=== PATIENT | female | born 1995 | race Two or more races ===

== ENCOUNTER 2024-09-23 09:08 | Emergency (ER) | payer MEDICAID, SELFPAY ==
[2024-09-23 09:18] VITALS: BP 123/85; PULSE 86; RESP 16; TEMP 36.6; O2SAT 98; BMI 30.9
[2024-09-23 10:05] LABS: Collection Type, Urine Voided
--- NOTE | 2024-09-23 10:07 | PD.EDNECK ---
ED Neck Injury Pain RME/HPI General Chief Complaint: Neck Pain/Injury Stated Complaint: RIGHT SIDE NECK PAIN RATIATING TO HEAD X 1 WEEK Time Seen by Provider: 09/23/24 09:21 Arrival date/time: 09/23/24 09:08 This is a 28-year-old female that comes in with complaints of occipital head pain and neck pain. Patient states that she recently had a URI and the symptoms are actually better but she still has a headache. Patient was seen by her primary provider and was given a steroid shot and was also given a steroid pack which she finished. Patient states that her pain did get better but she still has the pain. Patient states that headaches been going on for the past week. Patient denies any visual symptoms, dizziness nausea, vomiting. Related Data Home Medications ?Medication ?Instructions ?Recorded ?Confirmed Vitamin * 1 tab PO QDAY SUPPLEMENT 04/02/14 01/25/18 #0 tabs Previous Rx's ?Medication ?Instructions ?Recorded sulfamethoxazole 800 1 tab PO BID #14 tabs 11/21/22 mg-trimethoprim 160 mg tablet (Bactrim DS) Allergies Allergy/AdvReac Type Severity Reaction Status Date / Time No Known Drug Allergies Allergy Unknown Verified 09/23/24 09:11 Course Orders Category Date Time Status HCG Qualitative,Urine Stat Lab 09/23/24 10:00 Received Urinalysis, C/S if Indicated Stat Lab 09/23/24 10:00 Received Vital Signs Vital signs: Vital Signs Temperature 97.8 F 09/23/24 09:18 Pulse Rate 86 09/23/24 09:18 Respiratory Rate 16 09/23/24 09:18 Blood Pressure 123/85 H 09/23/24 09:18 Pulse Oximetry (%) 98 09/23/24 09:18 Oxygen Delivery Method Room Air 09/23/24 09:18 Discharge Plan Prescriptions/Referrals Prescriptions/Med Rec: No Action Vitamin * 1 EACH tablet 1 tab PO QDAY Qty: 0 sulfamethoxazole-trimethoprim [Bactrim DS] 800-160 mg tablet 1 tab PO BID Qty: 14 0RF Referrals: Nirmal Beverly FNP [Primary Care Provider] - In 1 week Patient/Caregiver Discharge Instructions Print Language: Taiwanese
[2024-09-23 10:48] LABS: Bilirubin,Urine Negative (Negative); Blood,Urine Negative (Negative); Clarity,Urine Clear (Clear/Hazy); Color,Urine Yellow (Lt Yel-Yel); Culture Indicated,Urine Not Indicated; Glucose, Urine Negative (Negative); Ketones,Urine Negative (Negative); Leukocyte Esterase,Urine Negative (Negative); Nitrite,Urine Negative (Negative); Protein,Urine Negative (Neg - Trace); RBC,Urine 2 /hpf (0-3); Specific Gravity,Urine 1.028 (1.001-1.035); Squamous Epithelial Cell,Urine 12 /hpf (0-5); Urobilinogen,Urine Negative mg/dL (0.0-1.0); WBC,Urine 3 /hpf (0-5)
[2024-09-23 11:02] LABS: HCG Qualitative,Urine Negative
--- NOTE | 2024-09-23 11:56 | PD.EDRME ---
Rapid Medical Screening Exam RME Arrival date/time: 09/23/24 09:08 Chief Complaint: Neck Pain/Injury Time Seen by Provider: 09/23/24 09:21 Vital signs: Vital Signs Temperature 97.8 F 09/23/24 09:18 Pulse Rate 86 09/23/24 09:18 Respiratory Rate 16 09/23/24 09:18 Blood Pressure 123/85 H 09/23/24 09:18 Pulse Oximetry (%) 98 09/23/24 09:18 Oxygen Delivery Method Room Air 09/23/24 09:18
== END 2024-09-23 12:36 | disposition left against medical advice (07) ==
LOC: SERX 09:47
PROVIDERS: Nurse Practitioner Family; Emergency Provider Emergency Medicine; PCP Nurse Practitioner Family
DX: M54.2 Cervicalgia (principal); R51.9 Headache, unspecified; Z53.29 Procedure and treatment not carried out because of patient's decision for other reasons
CPT/HCPCS: 81001; 81025; 99281

== ENCOUNTER 2024-10-01 05:40 | Emergency (ER) | payer MEDICAID, SELFPAY ==
[2024-10-01 05:48] VITALS: BMI 27.4
[2024-10-01 05:59] VITALS: BP 117/76; PULSE 86; RESP 19; TEMP 36.6; O2SAT 97
--- NOTE | 2024-10-01 06:14 | XR_ITS ---
Examination: PA lateral chest 2 views TECHNIQUE: Upright PA and lateral chest 2 views Exam date and time: October 01, 2024 0630 hours INDICATIONS: Chest pain today. FINDINGS: Normal heart size Lungs are clear. Osseous structures are intact. IMPRESSION: No active disease
--- NOTE | 2024-10-01 06:14 | EKG_ITS ---
[facility] Test Date: 2024-10-01 Pat Name: KERA MERAZ Department: Room: - Gender: Female [employer] Equipment [employer]: : 1995 Requested By: Joce Ballard Order Number: [id number] Reading MD: Joce Ballard Measurements Intervals [place] Rate: 97 P: 55 KS: 167 QRS: 51 QRSD: 84 T: -1 QT: 334 QTc: 425 Interpretive Statements SINUS RHYTHM NONSPECIFIC T-WAVE ABNORMALITY No previous ECG available for comparison /store/[email or web address]/[id number]
--- NOTE | 2024-10-01 06:24 | PD.EDCHEST ---
ED Chest Pain RME/HPI General Chief Complaint: Neck Pain/Injury Stated Complaint: neck pain shoulder pain Time Seen by Provider: 10/01/24 06:15 Source: patient Arrival date/time: 10/01/24 05:40 28-year-old female with no known medical history presents to the emergency room with a chief complaint of neck pain, shoulder pain, 5 out of 10 sternal chest pain x 2 days Mode of arrival: ambulatory Limitations: no limitations Related Data Home Medications ?Medication ?Instructions ?Recorded ?Confirmed Vitamin * 1 tab PO QDAY SUPPLEMENT 04/02/14 01/25/18 #0 tabs Previous Rx's ?Medication ?Instructions ?Recorded sulfamethoxazole 800 1 tab PO BID #14 tabs 11/21/22 mg-trimethoprim 160 mg tablet (Bactrim DS) Allergies Allergy/AdvReac Type Severity Reaction Status Date / Time No Known Drug Allergies Allergy Unknown Verified 10/01/24 05:45 Review of Systems Review of Systems Systems Reviewed: All systems reviewed, normal except as documented Constitutional Constitutional: Reports system reviewed and no additional complaints, except as documented, Denies fatigue, Denies fever(s), Denies headache(s) and Denies weakness Eyes Eyes: Reports system reviewed and no additional complaints, except as documented, Denies blurry vision and Denies change in vision ENT Ears, Nose, Mouth, and Throat: Reports system reviewed and no additional complaints, except as documented, Denies otalgia, Denies headache(s), Denies nasal congestion, Reports neck pain, Denies throat swelling and Denies vertigo Cardiovascular Cardiovascular: Reports system reviewed and no additional complaints, except as documented, Reports chest pain, Denies dyspnea and Denies dyspnea on exertion Respiratory Respiratory: Reports system reviewed and no additional complaints, except as documented, Denies chest congestion, Denies cough, Denies dyspnea, Denies dyspnea on exertion and Denies wheezing Gastrointestinal Gastrointestinal: Reports system reviewed and no additional complaints, except as documented, Denies abdominal pain, Denies cramping, Denies nausea and Denies vomiting Genitourinary Genitourinary: Reports system reviewed and no additional complaints, except as documented Musculoskeletal Musculoskeletal: Reports system reviewed and no additional complaints, except as documented, Denies back pain, Reports myalgias and Reports neck pain Integumentary/Breasts Skin/Breast: Reports system reviewed and no additional complaints, except as documented and Denies wounds Neurologic Neurologic: Reports system reviewed and no additional complaints, except as documented, Denies confusion, Denies headache(s), Denies lack of coordination, Denies vertigo and Denies weakness Psychiatric Psychiatric: Reports system reviewed and no additional complaints, except as documented, Denies anxiety, Denies confusion, Denies depression, Denies paranoia, Denies suicidal ideation and Denies tactile hallucinations Endocrine Endocrine: Reports system reviewed and no additional complaints, except as documented and Denies fatigue Hematologic/Lymphatic Hematologic/Lymphatic: Reports system reviewed and no additional complaints, except as documented and Denies lymphadenopathy Allergic/Immunologic Allergic/Immunologic: Reports system reviewed and no additional complaints, except as documented, Denies throat swelling, Denies urticaria and Denies wheezing ED Exam General Limitations: Present no limitations General appearance: Present alert and in no apparent distress Head Head exam: Present atraumatic Eye Eye exam: Present normal appearance, PERRL and EOMI ENT ENT exam: Present normal exam, normal oropharynx and mucous membranes moist Neck Neck exam: Present normal inspection, full ROM and trachea midline Chest Chest inspection: Present normal inspection and symmetric chest wall rise; Absent tenderness, rash or abscess Respiratory Respiratory exam: Present normal lung sounds bilaterally Cardiovascular Cardiovascular exam: Present regular rate, normal rhythm, normal heart sounds, +S1 and +S2; Absent bradycardia, tachycardia, irregular rhythm, systolic murmur, diastolic murmur, rubs, gallop, clicks or JVD Abdominal Exam Abdominal exam: Present soft and normal bowel sounds Extremities Exam Extremities exam: Present normal inspection and full ROM Expanded Upper Extremity Exam Shoulder exam: Present full ROM and tenderness Arm exam: Present normal inspection and full ROM Elbow exam: Present normal inspection and full ROM Forearm/Wrist exam: Present normal inspection and full ROM Hand exam: Present normal inspection Vascular exam: Normal capillary refill Back Exam Back exam: Present normal inspection and full ROM Neurological Exam Neurological exam: Present alert, oriented X3 and CN II-XII intact Psychiatric Psychiatric exam: Present normal affect and normal mood Skin Skin exam: Present warm, dry, intact and normal color Course Quality Measures none Orders Category Date Time Status EKG (ED ONLY) *Do not use* NOW Care 10/01/24 06:14 Completed EKG (ED Only) Stat Exams 10/01/24 06:14 Draft XR chest 2V Stat Exams 10/01/24 06:14 Completed B-Type Natriuretic Peptide Stat Lab 10/01/24 06:59 Completed CBC Stat Lab 10/01/24 06:59 Completed Comprehensive Metabolic Panel Stat Lab 10/01/24 06:59 Completed Magnesium Stat Lab 10/01/24 06:59 Completed Troponin I Stat Lab 10/01/24 06:59 Completed Ketorolac Inj [Toradol Inj] Med 10/01/24 06:14 Discontinued 30 mg IM X1 ONE Vital Signs Vital signs: Vital Signs Temperature 98 F 10/01/24 05:59 Pulse Rate 86 10/01/24 05:59 Respiratory Rate 19 10/01/24 05:59 Blood Pressure 117/76 10/01/24 05:59 Pulse Oximetry (%) 97 10/01/24 05:59 Oxygen Delivery Method Room Air 10/01/24 05:59 Procedures -ED EKG Interpretation #1: Date of EK10/01/24 Rate: 97 Interpretation: Reviewed by me EKG Impression: Normal sinus rhythm Additional EKG comment: EKG showed normal sinus rhythm at [address] deviation Chest Pain MDM Narrative MDM Narrative:: 28-year-old female with no known medical history presents to the emergency room with a chief complaint of neck pain, shoulder pain, 5 out of 10 sternal chest pain x 2 days Patient is hemodynamically stable and in no apparent distress. Physical examination shows 5 out of 10 sternal chest pain that radiates down her left arm up to her neck and shoulder area. Patient denies any trauma. Patient has a strong regular rhythm S1 and S2 noted EKG was completed and shows normal sinus rhythm at [address] deviation. CBC CMP were within normal limits troponin was negative Patient was discharged and educated to follow-up with primary care provider in the next 24 to 48 hours and return to the emergency room for any evidence of worsening signs or symptoms Patient data External records reviewed:: [facility] previous records Clinical information provided by:: patient Social determinants that could affect healthcare access:: none Patient has the following chronic illnesses:: No chronic illness How is presenting disease/condition affected by chronic disease/condition?: no chronic disease Evaluation data The following diagnostics were reviewed and interpreted by me:: lab results and radiology exam(s) Lab and/or radiology exams considered but not ordered:: Labs radiology exams considered and ordered Interpretation Summary: Chest [id number]: Normal heart size Lungs are clear. Osseous structures are intact. IMPRESSION: No active disease Medications / Prescriptions Medications or Prescriptions considered but not ordered:: Medication given Medication administrations:: Medication Administration History Discontinued Medications Ketorolac Tromethamine (Ketorolac Inj 60 Mg/2 Ml Vial) 30 mg IM X1 ONE Stop: 10/01/24 06:15 Last Admin: 10/01/24 07:06 Dose: 30 mg Documented By: SE Medication given Consultations Consultation(s) initiated? (list below): No Diagnosis Chest Pain Differential Diagnosis: stable angina, atypical chest pain, st elevation myocardial infarction, costochondritis and chest pain Most likely diagnosis given after review of the tests above:: Chest pain Admission Indicated Admission indicated?: not indicated Admission Request Was there a request for admission?: No Disposition Plan Disposition Plan: Discharge Discharge Attestation Discharge Attestation: The patient and all family members were given an opportunity to ask questions and understood the discharge instructions. Discharge instructions specifically effects, indications for sooner follow up or return to the emergency department, and the expected course of current diagnosis. Patient condition: Stable Discharge Plan Plan Patient Disposition: HOME (Self Care) Discharge Disposition comment: Stable Prescriptions/Referrals Prescriptions/Med Rec: No Action Vitamin * 1 EACH tablet 1 tab PO QDAY Qty: 0 sulfamethoxazole-trimethoprim [Bactrim DS] 800-160 mg tablet 1 tab PO BID Qty: 14 0RF Referrals: Nirmal Beverly FNP [Primary Care Provider] - In 1 week Problem List Clinical Impression: Chest pain, Strain of neck muscle Patient/Caregiver Discharge Instructions Education Materials: ED Chest Pain, Noncardiac, ED Neck Sprain or Strain Additional Instructions: Please follow-up with your primary care provider in the next 24 to 48 hours. Your cardiac examination was negative for any acute findings. For any evidence of worsening signs or symptoms return to the emergency room immediately Print Language: Frisian Stand Alone Forms: Leah Award Info., Work/School Release, Patient Portal Info Letter SHAKIRA/BETTY Supervising Physician SHAKIRA/BETTY Supervising Physician: Dr. Ryder
[2024-10-01] MEDS: KETOROLAC INJ 60 MG/2 ML VIAL 30 MG IM (07:06)
[2024-10-01 07:25] LABS: Basophils % (Auto) 0 % (0-2.5); Eosinophils # (Auto) 0.2 Thou/mm3 (0.0-0.5); Eosinophils % (Auto) 2 % (0-10); Hematocrit 36.4 % (36.0-46.0); Hemoglobin 12.6 g/dL (12.0-16.0); Immature Granulocytes % (Auto) 0 % (0-0); Immature Granulocytes Auto 0.03 Thou/mm3 (0.00-0.00); Lymphocytes # (Auto) 2.4 Thou/mm3 (1.0-4.8); Lymphocytes % (Auto) 24 % (10-50); Mean Corpuscular HGB Conc 34.6 g/dl (31.0-37.0); Mean Corpuscular Hemoglobin 28.1 pg (25.0-35.0); Mean Corpuscular Volume 81 fL (80-100); Monocytes # (Auto) 0.5 Thou/mm3 (0.0-0.8); Monocytes % (Auto) 5 % (0-12); Neutrophils # (Auto) 7.1 Thou/mm3 (1.8-7.7); Neutrophils % (Auto) 69 % (37-80); Nucleated Red Blood Cell % 0 /100 WBC (0); Platelet Count 246 Thou/mm3 (140-440); RDW Standard Deviation 38.7 fL (36.4-46.3); Red Blood Count 4.49 Miln/mm3 (4.00-5.20); White Blood Count 10.3 Thou/mm3 (3.6-11.0)
[2024-10-01 07:37] LABS: B-Type Natriuretic Peptide < 20 pg/mL (0-100)
[2024-10-01 07:39] LABS: Alanine Aminotransferase 113 U/L (10-49); Albumin, Serum 4.6 gm/dL (3.5-5.0); Albumin/Globulin Ratio 1.7 (1.2-2.2); Alkaline Phosphatase 110 U/L (46-116); Anion Gap 9 (7-16); Aspartate Amino Transferase 95 U/L (0-34); BUN/Creatinine Ratio 13 Ratio (12-20); Bilirubin,Total 0.6 mg/dL (0.3-1.2); Blood Urea Nitrogen 8 mg/dL (9-23); Calcium 8.8 mg/dL (8.3-10.6); Calcium (Corrected) 8.8 mg/dL (8.5-10.1); Carbon Dioxide 23.8 mMol/L (20.0-31.0); Chloride 106 mMol/L (98-107); Creatinine (Component) 0.6 mg/dL (0.6-1.3); Globulin 2.7 gm/dL (2.3-3.5); Glucose 124 mg/dL (74-106); Magnesium 1.8 mg/dL (1.6-2.6); Osmolality,Calculated 276 (275-295); Potassium 3.7 mMol/L (3.4-5.1); Sodium 139 mMol/L (136-145); Total Protein 7.3 gm/dL (5.7-8.2); Troponin I < 0.002 ng/mL (0.0-0.045); eGFR > 60 See Note
== END 2024-10-01 08:24 | disposition home or self-care (01) ==
PROVIDERS: Nurse Practitioner Family; Emergency Provider Family Medicine; PCP Nurse Practitioner Family
DX: S16.1XXA Strain of muscle, fascia and tendon at neck level, initial encounter (principal); R07.2 Precordial pain; R94.31 Abnormal electrocardiogram [ECG] [EKG]; X58.XXXA Exposure to other specified factors, initial encounter
CPT/HCPCS: 36415; 71046; 80053; 83735; 83880; 84484; 85025; 93005; 96372; 99283; J1885